=== PATIENT | male | born 1980 | race African-American/Black ===

== ENCOUNTER 2018-07-07 17:38 | Emergency (ER) | payer SELFPAY ==
[~2018-07-07] VITALS: Ht 180.3 cm; Wt 82.0 kg
[2018-07-07 17:45] VITALS: BP 119/84
== END 2018-07-07 21:00 | disposition left against medical advice (07) ==
LOC: ER 18:36
DX: Z53.21 Procedure and treatment not carried out due to patient leaving prior to being seen by health care provider (principal)